=== PATIENT | female | born 1955 | race Caucasian/White ===

== ENCOUNTER 2019-09-12 19:36 | Emergency (ER) | payer SELFPAY ==
[~2019-09-12] VITALS: Ht 160 cm; Wt 52.6 kg
[2019-09-12 19:51] VITALS: Ht 160 cm; Wt 52.6 kg
[2019-09-12 20:24] LABS: BASOPHIL % 0.4 % (0-2); PLATELET COUNT 174 x10^3mcL (130-400)
[2019-09-12 20:40] LABS: CALCIUM 9.3 mg/dL (8.5-10.1); CARBON DIOXIDE 30.8 mmol/L (21-32); CHLORIDE SERUM 102 mmol/L (98-107); CREATININE SERUM 0.8 mg/dL (0.6-1.0); GFR1 > 60 mL/min; GLUCOSE SERUM 134 mg/dL (74-106); POTASSIUM SERUM 3.2 mmol/L (3.5-5.1); SODIUM SERUM 141 mmol/L (136-145)
[2019-09-12 20:44] LABS: ALBUMIN 4.1 g/dL (3.4-5.0); ALKALINE PHOSPHATASE 82 U/L (46-116); ALT/SGPT 28 U/L (14-59); AST/SGOT 15 U/L (15-37); BILIRUBIN TOTAL 0.2 mg/dL (0.20-1.00); TOTAL PROTEIN, SERUM 7.4 g/dL (6.4-8.2)
[2019-09-12 22:21] VITALS: BP 127/68
== END 2019-09-12 22:21 | disposition home or self-care (01) ==
LOC: ED 19:36
PROVIDERS: Emergency Medicine
DX: R42 Dizziness and giddiness (principal); H92.01 Otalgia, right ear; R11.0 Nausea
CPT/HCPCS: J2765; J7030; J8597